=== PATIENT | female | born 1945 | race American Indian/Alaskan Native ===

== ENCOUNTER 2019-09-26 14:11 | Emergency (ER) | payer MEDICARE ==
[2019-09-26 15:05] VITALS: BP 127/56
--- NOTE | 2019-09-26 16:02 | XRay Report ---
CHEST 2 VIEWS INDICATION / CLINICAL INFORMATION: MAIN: SOB; productive cough; chest pain x 4 days; hx of bacterial pneumonia. COMPARISON: 11/05/2009 FINDINGS: SUPPORT DEVICES: None. HEART / MEDIASTINUM: No significant abnormality. LUNGS / PLEURA: No significant pulmonary or pleural abnormality. .No pneumothorax. ADDITIONAL FINDINGS: No significant additional findings. IMPRESSION: 1. No acute findings. Signer Name: Cory Villa MD Signed: 09/26/2019 3:58 PM Workstation Name: [id number]
--- NOTE | 2019-09-26 18:03 | Emergency Department Report ---
- General Chief Complaint: Upper Respiratory Infection Stated Complaint: COLD SYMPTOMS Time Seen by Provider: 09/26/19 17:52 Source: patient Mode of arrival: Ambulatory Limitations: No Limitations - History of Present Illness Initial Comments: 74-year-old -[place] female presents to the emergency room for cold like symptoms. Patient admits to chills cough chest and back pain since Sunday. She denies any nausea vomiting. Patient reports she's had a subjective fever. Patient reports she's taken [id number] Robitussin. She did take Aleve last dose was this morning help some. Patient reports that she has a decrease in appetite but is able to drink. MD Complaint: fever, cough Onset/Timin -: days(s) Quality: dull Improves With: NSAID Worsens With: deep breaths Associated Symptoms: fever, chills, myalgias, cough. denies: headache, rhinorrhea, nasal congestion, sore throat, nausea, vomiting, diarrhea, dysuria Treatments Prior to Arrival: other (Aleve) - Related Data Previous Rx's Medication Instructions Recorded Last Taken Type Chlorpheniramine/Codeine Phos 5 ml PO TID #118 ml 09/26/19 Unknown Rx [Z-Tuss AC 2 mg-9 mg/5 ml Liq] Allergies Allergy/AdvReac Type Severity Reaction Status Date / Time latex Allergy Rash Verified 09/26/19 14:16 ED Review of Systems ROS: Stated complaint: COLD SYMPTOMS Other details as noted in HPI ED Past Medical Hx - Past Medical History Previous Medical History?: No - Surgical History Past Surgical History?: Yes Additional Surgical History: Left shoulder surgery - Social History Smoking Status: Current Some Day Smoker Substance Use Type: None - Medications Home Medications: Home Medications Medication Instructions Recorded Confirmed Last Taken Type Chlorpheniramine/Codeine Phos 5 ml PO TID #118 ml 09/26/19 Unknown Rx [Z-Tuss AC 2 mg-9 mg/5 ml Liq] ED Physical Exam - General Limitations: No Limitations ED Course Vital Signs 09/26/19 15:04 Temperature 98.4 F Pulse Rate 113 H Respiratory 20 Rate Blood Pressure 127/56 O2 Sat by Pulse 97 Oximetry ED Medical Decision Making - Radiology Data Radiology results: report reviewed Patient: MARY DE JESUS MR#: [id number] : 1945 Acct:[id number] Age/Sex: 74 / F ADM Date: 09/26/19 Loc: ED Attending Dr: Ordering Physician: CHIKIS KEYES Date of Service: 09/26/19 Procedure(s): XR chest routine 2V Accession Number(s): [id number] cc: CHIKIS KEYES Fluoro Time In Minutes: CHEST 2 VIEWS INDICATION / CLINICAL INFORMATION: MAIN: SOB; productive cough; chest pain x 4 days; hx of bacterial pneumonia. COMPARISON: 11/05/2009 FINDINGS: SUPPORT DEVICES: None. HEART / MEDIASTINUM: No significant abnormality. LUNGS / PLEURA: No significant pulmonary or pleural abnormality. .No pneumothorax. ADDITIONAL FINDINGS: No significant additional findings. IMPRESSION: 1. No acute findings. Signer Name: Cory Villa MD Signed: 09/26/2019 3:58 PM Workstation Name: [id number] Transcribed By: Dictated By: Cory Villa MD Electronically Authenticated By: Croy Villa MD Signed Date/Time: 09/26/191557 DD/ 47 TD/TT: Critical care attestation.: If time is entered above; I have spent that time in minutes in the direct care of this critically ill patient, excluding procedure time. ED Disposition Clinical Impression: URI, acute Disposition: [id number] TO HOME OR SELFCARE Is pt being admited?: No Does the pt Need Aspirin: No Condition: Stable Instructions: Viral Syndrome (ED), Upper Respiratory Infection (ED) Additional Instructions: Take cough medication as prescribed. Do not operate heavy machinery or taking cough medication. Increase her fluid intake advance her diet as tolerated. Ibuprofen or Aleve as needed for body aches. If her symptoms persist or gets worse follow-up with her primary care provider. Prescriptions: Chlorpheniramine/Codeine Phos [Z-Tuss AC 2 mg-9 mg/5 ml Liq] 5 ml PO TID #118 ml Forms: Work/School Release Form(ED)
== END 2019-09-26 18:54 | disposition home or self-care (01) ==
LOC: ED 14:11
DX: J06.9 Acute upper respiratory infection, unspecified (principal); F17.200 Nicotine dependence, unspecified, uncomplicated; Z98.890 Other specified postprocedural states; Z79.899 Other long term (current) drug therapy; Z91.040 Latex allergy status
CPT/HCPCS: 71046